=== PATIENT | male | born 1990 | race Caucasian/White ===

== ENCOUNTER 2017-07-27 11:55 | Emergency (ER) | payer BC ==
[2017-07-27] MEDS ORDERED: NORMAL SALINE 1,000 ML IV ONE (12:49)
[2017-07-27] MEDS ORDERED: DIATRIZOATE MEGLUMINE, SODIUM 30 ML BTL PO ONE (12:51)
[2017-07-27] MEDS ORDERED: DIATRIZOATE MEGLUMINE, SODIUM 30 ML BTL ONE (12:52)
[2017-07-27 12:58] LABS: Hematocrit 43.7 % (42.0-52.0); Hemoglobin 15.1 gm/dL (13.5-18.0); Mean Cell Volume 82.5 fl (78-100); Mean Corpuscular Hemoglobin 28.5 pg (27-31); Mean Corpuscular Hgb Conc 34.6 g/dl (32-36); Mean Platelet Volume 10.4 fl (6.0-9.5); Neutrophil # 7.4 K/mm3 (1.3-6.0); Neutrophil % 69.3 % (42-75.0); Platelet Count 298 K/mm3 (150-450); Red Cell Distribution Width 13.2 % (11.5-14.0); White Blood Count 10.7 K/mm3 (4.0-10.5)
[2017-07-27 13:11] LABS: Albumin * 3.6 gm/dl (3.4-5.0); Anion Gap 13.2 mmol/L (6.8-13.8); BUN/Creatinine Ratio 13.1 (9.0-21.6); Bilirubin, Total 0.4 mg/dL (0.0-1.1); CRP 3.6 mg/dL (0.0-0.9); Ca. Corrected For Albumin 8.6 mg/dL (8.4-10.2); Calcium * 8.6 mg/dL (7.9-10.9); Carbon Dioxide 25.7 mmol/L (24-32.6); Potassium 3.9 mmol/L (3.4-4.6); Total Protein 8.2 gm/dL (6.2-8.2)
[2017-07-27] MEDS ORDERED: MORPHINE SULFATE 4 MG/ML SYRG IV ONE (14:20)
[2017-07-27] MEDS ORDERED: ONDANSETRON HCL/PF 2 MG/ML VIAL IV ONE (14:20)
[2017-07-27] MEDS ORDERED: MORPHINE SULFATE 4 MG/ML SYRG ONE (14:31)
[2017-07-27] MEDS ORDERED: ONDANSETRON HCL/PF 2 MG/ML VIAL ONE (14:31)
--- NOTE | 2017-07-27 14:44 | ERNOTE ---
GI Bleeding/Rectal Pain ER Date of Service: 07/27/17 Presenting Symptoms: rectal bleeding, rectal pain Time Seen by Provider: 07/27/17 12:23 Source: patient Exam Limitations: no limitations Immunizations: IMMUNIZATION HX Immunizations Up to Date Yes History of Influenza Vaccine No Hx Pneumococcal Vaccination No Allergies/Adverse Reactions: Allergies No Known Allergies Allergy (Unverified 07/27/17 12:16) Home Medications: HOME MEDICATIONS NK [No Home Medication] 07/27/17 [Last Taken Unknown] Narrative: 27yo, M, presents to ER for evaluation of rectal bleeding and pain, along with LLQ abd pain. He reports having hx of mild rectal bleeding lasting approx 1 days , intermittently occurring approx weekly for the past several years. Last week he started with his usual mild bleeding, but on 07/24/17 he developed increased bleeding, LLQ, along with pain within the rectum. He notes pain feels more internal than external. He reports having a moderate amt of bleeding over the next week, says with blood in the water, streaked within the stool, but also noting blood to "splatter" on toilet when attempting to pass gas. He did pass a few thumb sized clots. Today, bleeding has decreased, but he continues to have rectal pain and mild LLQ pain. States pain was initally 8/10 to abd, but at present rates 3/10. Denies need for pain medication at this time. He normally passes BMs daily and has had not acute changes in BMs. Denies any diarrhea or constipation. He denies any known hx of Inflammatory bowel dis, but does have family hx of colon CA with mtr, aunt and grandmtr dx in their 40s, 50s. Abdominal Pain: Present: LLQ Associated Symptoms: Reports: black stools, rectal pain. Denies: tarry stools, fainting, light headedness, diarrhea Review of Systems - Review of Systems Constitutional: Absent: fever, chills, fatigue Respiratory: Absent: shortness of breath, cough, wheezing Gastrointestinal/Abdominal: Present: vomiting - x1 episode due to pain, abdominal pain - LLQ, eating less, other - good oral intake of fluids, blood in stools. Absent: nausea, diarrhea, constipation Genitourinary: Absent: frequency, pain, dysuria Musculoskeletal: Absent: back pain Skin: Absent: rash - Patient's Past Medical History Patient History - Medical: No pertinent hx Patient History - Cardiac/Respiratory: No pertinent hx Patient History - Cancer: No Hx of Cancer Patient History - Surgical Procedures: No surgical history Patient History - Other: None - Social History Living Situations: home Abuse History: No History of abuse Psych History: No pertinent hx Smoking Status: Former smoker Have you smoked in the past 12 months: No Do you dip or chew tobacco: No Alcohol Use: none Drug Use: none - Immunizations Immunizations Up to Date: Yes Hx Pneumococcal Vaccination: No History of Influenza Vaccine: No Physical Exam - Physical Exam General Appearance: Present: wd/wn, alert, no apparent distress Respiratory: Present: no respiratory distress, normal breath sounds, no accessory muscle use. Absent: crackles, rhonchi, wheezing Cardiovascular/Chest: Present: regular rate, rhythm, no murmur Gastrointestinal/Abdominal: Present: normal bowel sounds, nondistended, soft, tenderness - LLQ. Absent: rebound, McBurney sign Rectal Exam: Present: normal rectal tone, other - bright red blood on rectal exam, tenderness reported on exam. Absent: mass, fecal impaction, hemorrhoids Neurological Exam: Present: alert, oriented Skin Exam: Present: normal color, warm/dry ED Progress - Date and Time Seen: Date and Time: 07/27/17 14:20 HR was elevated. Pt reporting increased discomfort, requesting pain medication. Ordered Morphine and Zofran. nuclear monitoring technician at bedside before medication administer. Pt then states he will wait until after CT for medications. 07/27/17 16:55 Rechecked abd, mild tenderness over L. side of abd, worse to LUQ. No pain to RLQ , no rebound tenderness, no pain to RLQ with jumping. Reviewed CT results with pt and spouse. Then contacted Dr. Cummings reviewed exam findings, HPI, lab and CT results. Dr. Cummings states he will return call to ER in 10 min. Since arrival to ER he has had single episode of bleeding, notes small amt of blood in water and on paper. Denies passing any clots. 07/27/17 17:30 Dr. Cummings here at bedside with pt. 07/27/17 17:50 Dr. Cummings returned to desk, states he is going to reivew OR schedule and determine scheduling for scope. 07/27/17 18:10 Dr. Cummings returned to ER. He requests pt seen him in office at 08:00am tomorrow. He did review this with pt as well. He provided pt with cell phone number and to call with any problems or concerns tonight. Provider reviewed dc plan and appt details with pt and spouse. - Results and Orders Patient's Lab Results:: I have reviewed the patient's lab results. - Vital Signs Patient's Vital Signs:: I have reviewed the patient's vital signs. Vital Signs: Vital Signs 07/27/17 07/27/17 12:17 13:41 Temperature 36.2 C L Pulse Rate 114 H 132 H Respiratory 18 16 Rate Blood Pressure 123/97 103/56 O2 Sat by Pulse 97 98 Oximetry - CT/Ultrasound CT/Ultrasound Narrative: [facility] PATIENT RADIOLOGY STUDY REPORT Patient Patient Name:JULIO C DAVIES Date: 1990 Sex: M Order Number: [id number] Unique Exam ID: [id number] Exam Requested: ABDPELW - CT Abdomen/Pelvis W/C * Date Scheduled: 07-27-2017 02:51 PM Study Priority: Requesting Service: Requesting Physician: Nhi Triplett Reason for Exam: LLQ abd pain, rectal bleeding Radiological Report : [facility] [address] [place] [address] NAME: JULIO C DAVIES : 1990 MR #: [id number] CC: LOC: ER ADM DATE: X-RAY REPORT [id number] CT/CT Abdomen/Pelvis W/C * Exam Date: 07/27/2017 14:51 Ordering Physician: Nhi Triplett HISTORY/INDICATION: LLQ abd pain, rectal bleeding. Additional history from technologist: Painful bowel movement. Bright red blood and dark stools. TECHNIQUE: Contrast enhanced CT images of the abdomen during portal venous phase obtained. Excretory phase images of the abdomen and pelvis were also obtained. Coronal reconstructions were also submitted. Oral contrast material was given. Dose reduction techniques using the adjustment of the mA and/or kV according to patient size and/ or use of AEC or iterative reconstruction were used in the acquisition of this exam. COMPARISON: None available. CT Abdomen/Pelvis W/C * ABDOMEN: Upper Inspector images demonstrate a small metallic density overlying the anterior left lower chest. Lungs: The visualized portions of the lung bases are clear. Visualized portions of the heart grossly normal. Liver: Enlarged, hypodense appearance suggestive of fatty infiltration of the liver. Gallbladder: The gallbladder appears to be grossly unremarkable. Noncalcified gallstones would be difficult to exclude, and an ultrasound of the gallbladder should be considered if there is a concern for cholecystitis or biliary colic. Pancreas: The pancreas appears to be normal in appearance. Spleen: The spleen is unremarkable. Adrenal glands: Unremarkable without focal finding. Kidneys: Normal appearance without focal mass or hydronephrosis. Aorta: The aorta is normal in caliber with no evidence for aneurysm. Diameter of the infrarenal segment at the level of the inferior mesenteric artery origin is 1.9 cm. Retroperitoneum: No pathologic size lymphadenopathy or mass within the retroperitoneum is seen. Stomach: Partially opacified stomach grossly unremarkable. Small bowel: Unremarkable, without signs of obstruction, bowel wall thickening, or mesenteric inflammatory changes. Colon: Mild bowel wall prominence of the rectosigmoid colon without definite signs of pericolonic inflammatory changes, most likely artifactual from nondistention and overall clinical concern for a potential acute rectosigmoid process is low but correlate clinically for mild colitis/proctitis. There is no definite signs of diverticular outpouching. There is no evidence for colonic obstruction. Series 4 image [id number] demonstrates the retrocecal appendix. The maximal transaxial diameter of the distal tip is slightly above normal limits measuring 8.4 mm, appears to be somewhat fluid filled. There is some stranding of the fat suggested adjacent to the tip of the appendix ( series 5 image 34-35. This is somewhat confounding, as the patient presents with left lower quadrant abdominal pain and rectal bleeding, however correlate clinically for possible early tip appendicitis. Abdominal wall: Unremarkable without focal mass or hernia. No evidence for intraperitoneal free air. PELVIS: Contrast-filled portions of the urinary bladder demonstrates no focal finding. There is a slight fullness of the right side seminal vesicle on series 4 image 80. Consider potential seminal vesiculitis. No definite signs of pelvic lymphadenopathy or masses are noted. No evidence of free pelvic fluid noted. Bones: Osseous structures appear intact without obvious destructive changes. IMPRESSION: 1. Equivocal bowel wall prominence of the rectosigmoid colon as discussed above. Overall concern for true pathology is low and most likely artifactual from nondistention but given patient's clinical history, consider potential colitis/proctitis. 2. Mildly prominent/slightly dilated tip of the retrocecal appendix, with minimal stranding of the adjacent fat. Overall equivocal, especially given history of left lower quadrant pain, but consider early tip appendicitis, and correlate clinically. 3. No evidence for perforation or intra-abdominal/pelvic abscess. 4. Slight asymmetric fullness of the right seminal vesicle. Consider seminal vesiculitis. 5. Incidental metallic density overlying the anterior left lower chest wall. Correlate clinically for known foreign body/previous injury (e.g. bullet fragment) 6. Additional comments and details are as above. Electronically signed by Hardy Baldersa M.D.. Hardy Balderas MD Dict: 07/27/17 1456 Typed: 07/27/17 1456/ 07/27/17 1509 07/27/17 1513 , Approved by: HARDY BALDERAS Approval Date: 07-27-2017 Approval Time: 02:56 PM THIS REPORT WAS RECEIVED FROM THE [facility] - Progress/Reassessment Chief Complaint: Rectal Bleeding Progress:: Improved - pain improved, rates 11/11 at present Departure Clinical Impression: Rectal bleeding, Anal fissure - Departure Disposition: Home self-care Condition: Stable Instructions: Anal Fissure, Adult, [id number], Bloody Diarrhea Additional Instructions: Follow up with Dr. Cummings tomorrow at 08:00am at his office Call Dr. Cummings with any problems or concerns prior to your appointment Referrals: Krishan Cummings MD [Staff Physician] -
[2017-07-27 17:05] VITALS: BP 142/69
== END 2017-07-27 18:19 | disposition home or self-care (01) ==
LOC: ER 11:55
DX: K62.5 Hemorrhage of anus and rectum (principal); K60.2 Anal fissure, unspecified
CPT/HCPCS: 36415; 74177; 80053; 82150; 82272; 83690; 85025; 85652; 86140; 96374; 96375; 99284; J2405

== ENCOUNTER 2017-07-31 08:08 | Day surgery (SDC) | payer BC ==
[~2017-07-31 08:08] MED LIST: RINGER'S SOLUTION,LACTATED 1,000 ML IV PRN
[2017-07-31] MEDS ORDERED: RINGER'S SOLUTION,LACTATED 1,000 ML IV ONE (08:38)
[2017-07-31] MEDS ORDERED: RINGER'S SOLUTION,LACTATED 1,000 ML IV PRN (09:52)
--- NOTE | 2017-07-31 10:28 | OR ---
Operative Report - Dictated Report Narrative: OPERATIVE REPORT DATE OF OPERATION: 07/31/2017 PREOPERATIVE DIAGNOSIS: Anal pain, rectal bleeding, abnormal CT scan POSTOPERATIVE DIAGNOSIS: Small anal fissure. Normal colon exam to 80 cm ( random biopsy pending) OPERATION: Flexible sigmoidoscopy to 80 cm with random biopsy SURGEON: Krishan Cummings MD ANESTHESIA: JOVITA Vazquez CRNA INDICATIONS FOR PROCEDURE: The patient is a 27-year-old male who was originally seen in the emergency room with a history of painful bowel movements and rectal bleeding. Exam at that time suggested anterior fissure. He had received a CT scan of the abdomen and pelvis which questioned possible colitis. He is brought for exam FINDINGS: Small superficial anterior anal fissure. Engorgement of the anal canal veins. Normal colonic mucosa up to 80 cm (random biopsy pending) NARRATIVE OF PROCEDURE: The patient was identified in the holding area and prior to the administration of anesthetic a multidisciplinary timeout was observed. With the patient in the left lateral position and after the administration of intravenous sedation the perineum was inspected. There was no evidence of pilonidal disease or skin breakdown. The external appearance of the anus was normal. The flexible fiberoptic colonoscope was inserted into the rectum which was insufflated with air. The rectal mucosa and submucosal vascular pattern appeared normal there was still some solid stool present however the prep was sufficient for exam. The scope was slowly withdrawn through the anal canal with demonstration of a small anterior fissure with hypertrophied anal papilla. The scope was then readvanced into the rectum. The scope was then advanced proximally through the sigmoid colon and up the descending colon to 80 cm. A long stretch of normal-appearing proximal colon was also visualized. The scope was then slowly withdrawn in a circular fashion so that all aspects of the colonic mucosa were seen. The colon was somewhat capacious and floppy in character, however the submucosal vascular pattern appeared normal. Specifically there was no gross evidence to suggest colitis or inflammatory bowel disease and no AV malformations were seen. No diverticular openings were demonstrated. No polyps were encountered. Random sigmoid colon biopsy was obtained. The biopsy site appeared hemostatic. The scope was gradually withdrawn to the level of the rectum and a retroflexed view obtained of the dentate line. There was a hypertrophied anal papilla anteriorly and mild engorgement of the internal hemorrhoidal veins but no neoplastic appearing lesions were appreciated. The scope was then straightened , insufflated air removed, and the scope was withdrawn from the patient. The operative procedure was terminated at this point. The patient tolerated the anesthetic and procedure well without complication. He was transferred back to the ambulatory surgery area awake in stable condition. The patient remained stable throughout a period of postoperative observation. He denied discomfort, was able to tolerate po intake, and was up without assistance. I shared the operative findings with him and his . He was given a copy of photographs which appear in the medical record. He was discharged home with instructions not to engage in hazardous activity today. He may return to normal activity tomorrow and advanced eyes as tolerated. He is to continue hydrocortisone 25 mg suppository twice daily after bowel movements. He is to continue Benefiber 1 tablespoon in 8 ounces of liquid twice daily. His on tears that he does not eat vegetables and he was encouraged to try to increase the amount of fiber in his diet. He is to call if needed for signs of increased pain or bleeding. He is to call the office on a weekly basis to report progress or return sooner if problems. Reviewed and electronically signed
[2017-07-31 10:37] VITALS: BP 129/73
== END 2017-07-31 08:09 | disposition home or self-care (01) ==
LOC: AMB 08:08
PROVIDERS: ATTEND Surgery
PROC: 0DBN8ZX Excision of Sigmoid Colon, Via Natural or Artificial Opening Endoscopic, Diagnostic (ICD-10-PCS; principal; 2017-07-31 09:00)
DX: K60.2 Anal fissure, unspecified (principal); R10.9 Unspecified abdominal pain; Z87.891 Personal history of nicotine dependence; Z68.41 Body mass index [BMI] 40.0-44.9, adult